=== PATIENT | female | born 1950 | race Caucasian/White ===

== ENCOUNTER 2019-02-22 06:49 | Observation (INO) | payer MEDICARE, BC ==
[2019-02-22] MEDS ORDERED: Potassium Replacement Protocol 1 EACH MISC MISCELLANE PRN (14:46)
[2019-02-22] MEDS ORDERED: NALOXONE 0.4 MG/ML 1 ML VIAL IV PRN (14:47)
[2019-02-22] MEDS ORDERED: IPRATROPIUM-ALBUTEROL 3 ML NEB INHALATION STA (14:58)
[2019-02-22] MEDS ORDERED: SODIUM CHLORIDE 0.9% 1,000 ML IV SCH (15:00)
[2019-02-22] MEDS: HYDROCHLOROTHIAZIDE 12.5 MG CAP PO SCH (15:22)
[2019-02-22] MEDS: PANTOPRAZOLE 40 MG TABLET PO SCH (15:22)
[2019-02-22 15:24] LABS: Basophils % (A) 1 %; Eosinophils # (A) 0.1 k/uL (0-0.7); Eosinophils % (A) 2 %; HGB 13.7 gm/dL (11.4-16.0); Lymphocytes # (A) 1.8 k/uL (1.0-4.8); Lymphocytes % (A) 34 %; MCH 31.3 pg (25.0-35.0); Mean Platelet Volume 7.3; Monocytes # (A) 0.3 k/uL (0-1.0); Monocytes % (A) 5 %; Neutrophils # (A) 3.1 k/uL (1.3-7.7); Neutrophils % (A) 57 %; Platelet Count 185 k/uL (150-450); RBC 4.39 m/uL (3.80-5.40); RDW 13.2 % (11.5-15.5); WBC 5.5 k/uL (3.8-10.6)
[2019-02-22 15:36] LABS: African American GFR (CKD) >90 (>60 ml/min/1.73 sqM); Anion Gap 5 mmol/L; Blood Urea Nitrogen 10 mg/dL (7-17); Calcium 9.5 mg/dL (8.4-10.2); Carbon Dioxide 31 mmol/L (22-30); Chloride 105 mmol/L (98-107); Glucose 128 mg/dL (74-99); Non-African American GFR(CKD) >90 (>60 ml/min/1.73 sqM); Potassium 4.2 mmol/L (3.5-5.1); Sodium 141 mmol/L (137-145)
--- NOTE | 2019-02-22 15:57 | US ---
EXAMINATION TYPE: US carotid duplex BILAT DATE OF EXAM: 02/22/2019 COMPARISON: NONE CLINICAL HISTORY: CVA. Pt states dizziness EXAM MEASUREMENTS: RIGHT: Peak Systolic Velocity (PSV) cm/sec ----- Right CCA: 54.9 ----- Right ICA: 88.7 ----- Right ECA: 55.7 ICA/CCA ratio: 1.6 RIGHT: End Diastole cm/sec ----- Right CCA: 20.0 ----- Right ICA: 37.0 ----- Right ECA: 6.0 LEFT: Peak Systolic Velocity (PSV) cm/sec ----- Left CCA: 62.7 ----- Left ICA: 98.4 ----- Left ECA: 54.9 ICA/CCA ratio: 1.6 LEFT: End Diastole cm/sec ----- Left CCA: 13.9 ----- Left ICA: 38.6 ----- Left ECA: 5.1 VERTEBRALS (direction of flow): Right Vertebral: Antegrade Left Vertebral: Antegrade Rhythm: Arrhythmia No significant stenosis seen IMPRESSION: 1. Mild plaquing and mild intimal thickening without significant flow-limiting stenosis. Criteria for Assigning % of Stenosis / Diameter reduction (Estimation based on the indirect measurements of the internal carotid artery velocities (ICA PSV). 1. Normal (no stenosis)=ICA PSV < 125 cm/s: ratio < 2.0: ICA EDV<40 cm/s. 2. Less than 50% stenosis=ICA PSV < 125 cm/s: ratio < 2.0: ICA EDV<40 cm/s. 3. 50 to 69% stenosis=ICA PSV of 125 to 230 cm/s: ration 2.0 ? 4.0: ICA EDV 40-100 cm/s. 4. Greater than 70% stenosis to near occlusion= ICA PSV > 230 cm/s: ratio > 4.0: ICA EDV > 100 cm/s. 5. Near occlusion= ICA PSV velocities may be low or undetectable: variable ratio and ICA EDV. 6. Total occlusion=unable to detect flow.
[2019-02-22] MEDS ORDERED: METOPROLOL SUCCINATE (ER) 25 MG TAB.ER.24H PO SCH (16:00)
--- NOTE | 2019-02-22 16:03 | ECHOF ---
Referral Reason:CVA MEASUREMENTS -------- HEIGHT: 165.1 cm WEIGHT: 79.4 kg BP: RVIDd: 2.7 cm (< 3.3) IVSd: 1.6 cm (0.6 - 1.1) LVIDd: 3.4 cm (3.9 - 5.3) LVPWd: 1.1 cm (0.6 - 1.1) IVSs: 1.9 cm LVIDs: 1.9 cm LVPWs: 1.9 cm LAESV Index (A-L): 18.77 ml/m IVSd: 0.9 cm (0.6 - 1.1) LVIDd: 4.3 cm (3.9 - 5.3) LVPWd: 1.1 cm (0.6 - 1.1) IVSs: 1.6 cm LVIDs: 2.3 cm LVPWs: 1.9 cm EDV(Teich): 85 ml ESV(Teich): 17 ml EF(Teich): 80 % %FS: 48 % SV(Teich): 68 ml Ao Diam: 3.0 cm (2.0 - 3.7) AV Cusp: 1.6 cm (1.5 - 2.6) LA Diam: 3.4 cm (2.7 - 3.8) MV EXCURSION: 10.759 mm (> 18.000) MV EF SLOPE: 54 mm/s (70 - 150) EPSS: 0.5 cm MV E Jose: 0.80 m/s MV DecT: 179 ms MV A Jose: 0.69 m/s MV E/A Ratio: 1.16 RAP: 5.00 mmHg RVSP: 41.36 mmHg FINDINGS -------- Sinus rhythm. This was a technically good study. The left ventricular size is normal. There is mild concentric left ventricular hypertrophy. Overa ll left ventricular systolic function is normal with, an EF between 55 - 60 %. The right ventricle is normal in size. The left atrial size is normal. Normal LA size by volume 22+/-6 ml/m2. The right atrial size is normal. Eustachian valve seen in the right atrium (normal finding). Interatrial and interventricular septum intact. The aortic valve is trileaflet and appears structurally normal. The mitral valve is normal. There is trace mitral regurgitation. The tricuspid valve appears structurally normal. Moderate tricuspid regurgitation present. There is mild pulmonary hypertension. The right ventricular systolic pressure, as measured by Doppler, is 41.36mmHg. There is no pulmonic regurgitation present. The aortic root size is normal. Normal inferior vena cava with normal inspiratory collapse consistent with estimated right atrial pre ssure of 5 mmHg. There is no pericardial effusion. CONCLUSIONS -------- 1. Sinus rhythm. 2. This was a technically good study. 3. The left ventricular size is normal. 4. There is mild concentric left ventricular hypertrophy. 5. Overall left ventricular systolic function is normal with, an EF between 55 - 60 %. 6. The right ventricle is normal in size. 7. The left atrial size is normal. 8. Normal LA size by volume 22+/-6 ml/m2. 9. The right atrial size is normal. 10. Eustachian valve seen in the right atrium (normal finding). 11. Interatrial and interventricular septum intact. 12. The aortic valve is trileaflet and appears structurally normal. 13. The mitral valve is normal. 14. There is trace mitral regurgitation. 15. The tricuspid valve appears structurally normal. 16. Moderate tricuspid regurgitation present. 17. There is mild pulmonary hypertension. 18. The right ventricular systolic pressure, as measured by Doppler, is 41.36mmHg. 19. There is no pulmonic regurgitation present. 20. The aortic root size is normal. 21. Normal inferior vena cava with normal inspiratory collapse consistent with estimated right atrial pressure of 5 mmHg. 22. There is no pericardial effusion. NETTING WEAVER: Alexsandra Haines RDCS
--- NOTE | 2019-02-22 16:58 | MR ---
EXAMINATION TYPE: MR brain wo/w con DATE OF EXAM: 02/22/2019 COMPARISON: None HISTORY: Rt sided weakness, TIA TECHNIQUE: Multiplanar, multisequence images of the brain and brainstem is performed without and with IV contras t, utilizing 7.5 mL intravenous Gadavist . FINDINGS: There is mild cerebral cortical atrophy. There is no mass effect nor midline shift. There is no sign of intracranial hemorrhage. On the T2 and FLAIR images there are numerous foci of increased signal in the periventricular white matter. These measure up to 10 mm and total number is approximately 30. Th ere is predominantly small lesions measuring up to 5 mm. There is some coalescent signal in the right posterior frontal lobe. Ventricles have normal size. There is no hydrocephalus. Brainstem is intact. Corpus callosum is intact. Sella turcica appears normal. The contrast images show no pathologic enhancement. There is normal contrast opacification of the chris ous sinuses. IMPRESSION: Periventricular white matter signal changes consistent with chronic small vessel ischemia or demyelinating disease. No evidence of cortical infarct. Mild atrophy.
[2019-02-22] MEDS ORDERED: ACETAMINOPHEN TAB 325 MG TAB PO PRN (18:05)
[2019-02-22] MEDS ORDERED: ONDANSETRON 4 MG/2 ML VIAL IVP PRN (18:05)
[2019-02-22] MEDS ORDERED: ALBUTEROL NEBULIZED 2.5 MG/3 ML INHALATION PRN (18:07)
[2019-02-22] MEDS ORDERED: POTASSIUM CHLORIDE ER 20 MEQ TAB.ER PO STA (18:09)
--- NOTE | 2019-02-22 18:38 | P.HPIM ---
History of Present Illness H&P Date: 02/22/19 Chief Complaint: dizziness Patient is a 69 yo CF with a past medical history of SVT, paroxysmal A. fib, HTN, and GERD who initially presented to [facility] with complaints of dizziness. There she underwent an extensive evaluation. Her vital signs were normal on admission. Laboratory analysis was normal other than a mildly low potassium at 3.3. She underwent a CT of the brain which showed chronic microvascular changes but no acute process. They were concerned for possible TIA versus CVA and she was subsequently transferred [facility] for neurology evaluation. Upon arrival here she underwent an echocardiogram which demonstrated an ejection fraction of 55-60%, mild LVH, moderate tricuspid regurg, and moderate pulmonary hypertension with RVSP of 41.36. She underwent carotid Dopplers which did not show any flow-limiting lesions. MRI was ordered. Patient seen and examined at bedside. She reports that last evening she had 3 significant coughing spells in rapid succession in the middle the night. She then started having some feelings of the room spinning when she opened her eyes. She sat at the edge of bed and these feelings resolved. She then got up to go to the bathroom and on her way back she again felt dizzy. She also noted that she was having an off-balance gait with some drifting to the right hand side. This took several minutes but also currently resolved on its own. Throughout the day she has had intermittent dizziness when changing positions and moving. It is always better with rest. These episodes are getting less frequent and severe with movement. She denies any focal neuro deficits such as one arm or leg is weaker non-, difficulty with speech, difficulty with swallowing, uneven face, or loss of vision. She denies any double vision but does state her vision felt out of focus on the initial event. She had a urinary tract infection about a month ago but has not had any other recent illness. She has chronic cough which is unchanged. She denies any fever, chills, nausea, vomiting, or diarrhea. She did not overtly feel as though she would pass out during these episodes but she does have a history of vasovagal syncope during coughing episodes. She did not have any associated chest pain with these episodes or palpitations. She does have a history of paroxysmal atrial fibrillation in the past. She is followed with Dr. Candelaria. Review of Systems Pertinent positives and negatives as discussed in HPI, a complete review of systems was performed and all other systems are negative. Past Medical History Past Medical History: COPD, Hyperlipidemia, Hypertension, Osteoarthritis (OA), Supraventricular Tachycardia (SVT) Additional Past Medical History / Comment(s): degenerative joint disease, one episode of paroxysmal A. fib, hiatal hernia, COPD stage II, mild obstructive sleep apnea, GERD, arthritis, secondary pulmonary hypertension History of Any Multi-Drug Resistant Organisms: None Reported Past Surgical History: Appendectomy, Tonsillectomy, Tubal Ligation Additional Past Surgical History / Comment(s): Heart cath Without stenting, nasal surgery Smoking Status: Former smoker - Past Family History Father Family Medical History: Congestive Heart Failure (CHF), Diabetes Mellitus Additional Family Medical History / Comment(s): Heart failure Mother Family Medical History: COPD, Diabetes Mellitus Medications and Allergies Home Medications Medication Instructions Recorded Confirmed Type Albuterol Inhaler [Ventolin Hfa 1 - 2 puff INHALATION RT-Q6H PRN 02/22/19 02/22/19 History Inhaler] Calcium Carb-Vit D 500Mg-200Un 1 each PO DAILY 02/22/19 02/22/19 History [Oscal 500+D] Ezetimibe/Simvastatin [Vytorin 1 tab PO DAILY 02/22/19 02/22/19 History 10-40 mg] Fluticasone/Salmeterol [Advair 1 inhalation PO BID 02/22/19 02/22/19 History 250-50 Diskus] Hydrochlorothiazide [Hydrodiuril] 12.5 mg PO DAILY 02/22/19 02/22/19 History Ipratropium-Albuterol Nebulize 3 ml INHALATION QID PRN 02/22/19 02/22/19 History [Duoneb 0.5 mg-3 mg/3 ml Soln] Metoprolol Succinate (ER) [Toprol 50 mg PO DAILY 02/22/19 02/22/19 History Xl] Metoprolol Succinate [Toprol XL] 25 mg PO DAILY@1600 02/22/19 02/22/19 History Pantoprazole Sodium [Protonix] 40 mg PO DAILY 02/22/19 02/22/19 History Sennosides/Docusate Sodium [Kerry 1 tab PO DAILY 02/22/19 02/22/19 History Colace] Sodium Chloride [Saline Nasal 1 spray EA NOSTRIL BID 02/22/19 02/22/19 History [place]] Allergies Allergy/AdvReac Type Severity Reaction Status Date / Time No Known Allergies Allergy Verified 02/22/19 13:05 Physical Exam Osteopathic Statement: *. No significant issues noted on an osteopathic structural exam other than those noted in the History and Physical/Consult. Vitals: Vital Signs Temp Pulse Pulse Resp BP Pulse Ox 02/22/19 15:45 88 02/22/19 15:38 86 02/22/19 15:20 98.6 F 85 18 122/76 95 Intake and Output 02/22/19 02/22/19 02/22/19 06:59 14:59 22:59 Other: Weight 79.4 kg General: non toxic, no distress, appears at stated age, normal weight Derm: no unusual rashes/lesions no unusual ecchymoses, warm, dry Head: atraumatic, normocephalic, symmetric Eyes: EOMI, no lid lag, anicteric sclera, pupils equal round reactive to light ENT: Nose and ears atraumatic, no thrush, no pharyngeal erythema Neck: No thyromegaly, no cervical lymphadenopathy, trachea midline, supple Mouth: no lip lesion, mucus membranes moist Cardiovascular: S1S2 reg, no murmur, positive posterior tibial pulse bilateral, no edema, capillary refill less than 2 seconds Lungs: CTA bilateral, no rhonchi, no rales , no accessory muscle use Abdominal: soft, nontender to palpation, no guarding, no appreciable organomegaly, normal bowel sounds Ext: no gross muscle atrophy, muscle strength 5 out of 5 in all 4 extremities grossly, no contractures, Neuro: Face symmetrical, pupils equal round reactive to light and accommodation, extraocular motion intact, no tongue deviation, no uvular deviation, shoulder rise equal bilaterally, light touch intact all 4 extremities, finger to nose within normal limits, no roving eye movements with [place], however got acutely dizzy when she sat back up and twisted her head Psych: Alert, oriented, appropriate affect Results CBC & Chem 7: 02/22/19 14:55 02/22/19 14:55 Labs: Abnormal Lab Results - Last 24 Hours (Table) 02/22/19 Range/Units 14:55 Carbon Dioxide 31 H (22-30) mmol/L Glucose 128 H (74-99) mg/dL CT Scan - head: report reviewed Thrombosis Risk Factor Assmnt - DVT/VTE Prophylaxis DVT/VTE Prophylaxis: Low risk, early ambulation encouraged - Choose All That Apply Each Risk Factor Represents 2 Points: Age 61-74 years Each Risk Factor Represents 5 Points: Stroke (< 1 month) Thrombosis Risk Factor Assessment Total Risk Factor Score: 7 Thrombosis Risk Factor Assessment Level: High Risk Assessment and Plan Assessment: Dizziness -Suspect secondary to BPPV, doubt posterior circulation stroke but will rule out with MRI -Echocardiogram and carotid Dopplers unrevealing -Continue with telemetry -Aspirin in the morning -Check lipid profile in a.m. -Low suspicion for acute cerebrovascular event therefore will maintain blood pressure medication -Patient appears to be walking without much difficulty on my examination -Orthostatic negative Hx of P. A fib episode X 1 - telemetry monitoring Chronic: Hypertension-resume home metoprolol, hydrochlorothiazide, follow blood pressures Dyslipidemia-continue with ezetimibe and statin GERD-resume PPI COPD without acute exacerbation-continue with as needed bronchodilators Pulmonary hypertension Hiatal hernia Osteoarthritis The patient is placed in observation with an anticipated less than 2 midnight stay for evaluation of DIzzness with concern for possible CVA/TIA Surrogate decision-maker: CODE STATUS:Full DVT prophylaxis: ambulation Discussed with: Patient, family, nursing, Dr. Carey Anticipated discharge date: in AM Anticipated discharge place: home A total of 65 minutes was spent on the care of this complex patient more than 50% of the time was spent in counseling and care coordination. [email or web address]
[2019-02-22] MEDS: IPRATROPIUM-ALBUTEROL 3 ML NEB INHALATION SCH (20:11)
[2019-02-22] MEDS: SYMBICORT 80-4.5 MCG INHALER INHALATION SCH (20:25)
[2019-02-23] MEDS: PANTOPRAZOLE 40 MG TABLET PO SCH (06:43)
[2019-02-23] MEDS: SYMBICORT 80-4.5 MCG INHALER INHALATION SCH (08:10)
[2019-02-23] MEDS: IPRATROPIUM-ALBUTEROL 3 ML NEB INHALATION SCH (08:10)
--- NOTE | 2019-02-23 08:51 | P.DS ---
Providers Date of admission: 02/22/19 12:54 Expected date of discharge: 02/23/19 Attending physician: Anitha Edmonds DO Consults: 02/22/19 14:45 Consult Physician Stat Consulting Provider: Mitra Sanders Reason/Comments: TIA/ right side weakness Do you want consulting provider notified?: Yes Primary care physician: Wilson Carey Hospital Course: Discharge Diagnosis: BPPV Hx of P. Afib- none on telemetry Hypertension Dyslipidemia GERD COPD without acute exacerbation Pulmonary hypertension Hiatal hernia Osteoarthritis Hospital Course: Patient is a 69 yo CF with a past medical history of SVT, paroxysmal A. fib, HTN, and GERD who initially presented to [facility] with complaints of dizziness. There she underwent an extensive evaluation. Her vital signs were normal on admission. Laboratory analysis was normal other than a mildly low potassium at 3.3. She underwent a CT of the brain which showed chronic microvascular changes but no acute process. They were concerned for possible TIA versus CVA and she was subsequently transferred [facility] for neurology evaluation. Upon arrival here she underwent an echocardiogram which demonstrated an ejection fraction of 55-60%, mild LVH, moderate tricuspid regurg, and moderate pulmonary hypertension with RVSP of 41.36. She underwent carotid Dopplers which did not show any flow-limiting lesions. MRI was consistent with small vessel ischemic changes. Orthostatics were negative. She was monitored on tele overnight with no noted episodes of A fib. She was determined to have BPPV. She was determined stable for discharge. She will follow-up with Dr. Carey and then ENT if no improvement in symptoms. I have asked her not to drive until dizziness resolves or use sharp objects. Patient seen and examined at bedside. No chest pain, SOB, nausea, still having dizziness when moving. Vital signs reviewed and stable. General: non toxic, no distress, appears at stated age Derm: warm, dry Head: atraumatic, normocephalic, symmetric Eyes: EOMI, no lid lag, anicteric sclera Mouth: no lip lesion, mucus membranes moist Cardiovascular: S1S2 reg, no murmur, positive posterior tibial pulse bilateral, Lungs: CTA bilateral, no rhonchi, no rales , no accessory muscle use Abdominal: soft, nontender to palpation, no guarding, no appreciable organomegaly Ext: no gross muscle atrophy, no edema, no contractures Neuro: CN II-XI grossly intact, no focal neuro deficits Psych: Alert, oriented, appropriate affect A total of 25 minutes of time were spent preparing this complex discharge summary . Patient Condition at Discharge: Stable Plan - Discharge Summary New Discharge Prescriptions: Continue Fluticasone/Salmeterol [Advair 250-50 Diskus] 1 inhalation PO BID Ezetimibe/Simvastatin [Vytorin 10-40 mg] 1 tab PO DAILY Albuterol Inhaler [Ventolin Hfa Inhaler] 1 - 2 puff INHALATION RT-Q6H PRN PRN Reason: Allergy Symptoms Ipratropium-Albuterol Nebulize [Duoneb 0.5 mg-3 mg/3 ml Soln] 3 ml INHALATION QID PRN PRN Reason: Shortness Of Breath Calcium Carb-Vit D 500Mg-200Un [Oscal 500+D] 1 each PO DAILY Sennosides/Docusate Sodium [Kerry Colace] 1 tab PO DAILY Pantoprazole Sodium [Protonix] 40 mg PO DAILY Hydrochlorothiazide [Hydrodiuril] 12.5 mg PO DAILY Metoprolol Succinate [Toprol XL] 25 mg PO DAILY@1600 Metoprolol Succinate (ER) [Toprol XL] 50 mg PO DAILY Sodium Chloride [Saline Nasal [place]] 1 spray EA NOSTRIL BID Discharge Medication List Albuterol Inhaler [Ventolin Hfa Inhaler] 1 - 2 puff INHALATION RT-Q6H PRN 02/22/19 [History] Calcium Carb-Vit D 500Mg-200Un [Oscal 500+D] 1 each PO DAILY 02/22/19 [History] Ezetimibe/Simvastatin [Vytorin 10-40 mg] 1 tab PO DAILY 02/22/19 [History] Fluticasone/Salmeterol [Advair 250-50 Diskus] 1 inhalation PO BID 02/22/19 [History] Hydrochlorothiazide [Hydrodiuril] 12.5 mg PO DAILY 02/22/19 [History] Ipratropium-Albuterol Nebulize [Duoneb 0.5 mg-3 mg/3 ml Soln] 3 ml INHALATION QID PRN 02/22/19 [History] Metoprolol Succinate (ER) [Toprol XL] 50 mg PO DAILY 02/22/19 [History] Metoprolol Succinate [Toprol XL] 25 mg PO DAILY@1600 02/22/19 [History] Pantoprazole Sodium [Protonix] 40 mg PO DAILY 02/22/19 [History] Sennosides/Docusate Sodium [Kerry Colace] 1 tab PO DAILY 02/22/19 [History] Sodium Chloride [Saline Nasal [place]] 1 spray EA NOSTRIL BID 02/22/19 [History] Follow up Appointment(s)/Referral(s): Wilson Carey MD [Primary Care Provider] - 1-2 Days Patient Instructions/Handouts: Benign Paroxysmal Positional Vertigo (GEN) Activity/Diet/Wound Care/Special Instructions: Activity: As Tolerated Diet: Heart Healthy Special Instructions: No driving until dizziness resolves
[2019-02-23] MEDS ORDERED: METOPROLOL SUCCINATE (ER) 50 MG TAB.ER.24H PO SCH (09:00)
[2019-02-23] MEDS ORDERED: CALCIUM CARB-VIT D 500MG-200UN 1 EACH TAB PO SCH (09:00)
[2019-02-23] MEDS ORDERED: EZETIMIBE 10 MG TAB PO SCH (09:00)
[2019-02-23] MEDS ORDERED: ASPIRIN 81 MG PO SCH (09:00)
[2019-02-23] MEDS ORDERED: ATORVASTATIN 20 MG TAB PO SCH (09:00)
[2019-02-23] MEDS ORDERED: SENNOSIDES-DOCUSATE SODIUM 1 EACH TAB PO SCH (09:00)
[2019-02-23 09:44] VITALS: BP 105/68; PULSE 86; RESP 18; TEMP 98.3
[2019-02-23] MEDS: HYDROCHLOROTHIAZIDE 12.5 MG CAP PO SCH (09:45)
--- NOTE | 2019-02-23 19:22 | P.CNNES ---
History of Present Illness Consult date: 02/23/19 Reason for Consult: TIA Chief complaint: Dizziness History of Present Illness: HISTORY OF PRESENT ILLNESS: Thank you for allowing me to evaluate Ms. Mami Stone. Ms. Stone is a 69-year-old woman with past medical history of COPD, HLD, HTN, paroxysmal atrial fibrillation, osteoarthritis, GERD, secondary pulmonary HTN, who presented to [facility] with complaints of dizziness, transferred to [facility] for neurological evaluation. Patient reported having had significant coughing spells in the middle of the night before presentation. She then started having some feelings of room spinning when she opened her eyes. Patient also noticed that she was quite unbalanced while walking, leaning over to her R side. Patient denies any similar episode previously. Her symptoms have resolved. Denies any headache, nausea, vomiting, weakness, numbness or tingling. PAST MEDICAL HISTORY: COPD, HLD, HTN, paroxysmal atrial fibrillation, osteoarthritis, GERD, secondary pulmonary HTN PAST SURGICAL HISTORY: Appendectomy, tonsillectomy, tubal ligation, heart catheterization HOME MEDICATIONS: Calcium/vitamin D, Ezetimibe/Simvastatin, Advair, HCTZ, Duoneb, metoprolol, pantoprazole ALLERGIES: NKDA SOCIAL HISTORY: Former smoker FAMILY HISTORY: Father with heart failure, diabetes. Mother with COPD, diabetes REVIEW OF SYSTEMS: The 14 systems are reviewed and no additional points are identified compared to the review of systems documented history and physical PHYSICAL EXAMINATION: VITAL SIGNS: T 98.1 HR 79 RR 16 BP 132/76 O2 sat 99% on RA GEN.: NAD, pleasant and cooperative HEENT: NCAT, sclera without icterus NECK: Supple, no carotid bruit SKIN AND EXTREMITIES: Warm to touch, no edema NEURO: MENTAL STATUS: Patient alert and oriented to self, place, time. Able to name the current president. Speech fluent, able to name and repeat, following all commands readily. No right and left disorientation, neglect. CRANIAL NERVES II THROUGH XII: II: [Pupils are equal and reactive to light symmetrically. No afferent pupillary defect. Visual william are intact. III, IV, : No ptosis. Extraocular movements full. No nystagmus. V: Facial sensation intact from V1-3. VII. No clear facial asymmetry. VIII: Hearing intact to finger rub bilaterally. IX, X: Symmetric palate elevation. XI: Shoulder shrug intact. XII: Tongue midline without fasciculation or atrophy. MOTOR: Normal bulk/tone. No pronator drift or tremor. Strength is 5/5 throughout all 4 extremities. SENSORY: Intact to light touch in all 4 extremities. Romberg is negative. REFLEXES: 2+ throughout. Toes are downgoing. COORDINATION: Finger to nose intact. No dysmetria. GAIT: Narrow-based and stable. Able to toe/heel/tandem walk HINTS: negative DIAGNOSTIC TESTING: LABORATORY: WBC 5.5 hemoglobin 13.7 platelet 185 sodium 141 potassium 4.2 chloride 105 bicarb 31 BUN 10 creatinine 0.67 glucose 128 IMAGING: MRI brain without contrast 02/22/2019: Periventricular white matter signal changes consistent with chronic small vessel ischemia. No evidence of cortical infarct. Mild atrophy Carotid Doppler bilateral 02/22/2019: Mild plaquing and mild intimal thickening without significant flow limiting stenosis ASSESSMENT/RECOMMENDATIONS: 69-year-old woman with past medical history of COPD, HLD, HTN, paroxysmal atrial fibrillation, osteoarthritis, GERD, secondary pulmonary HTN, who presented to [facility] with complaints of dizziness, transferred to [facility] for neurological evaluation. Symptoms have resolved. No focal neuro deficits. Patient most likely had a peripheral vertigo as a result of harsh coughing and displacement of otoliths that self-resolved. Patient with hx of a.fib, HTN, HLD, yet patient is not even on any antiplatelet. CHADsVASc score 3, which menas patient should most likely be started on anticoagulation. I unfortuantely did not get to discuss with patient about stroke prevention management with antiplatelet/anticoagulation. I will call patient tomorrow to discuss. Past Medical History Past Medical History: COPD, Hyperlipidemia, Hypertension, Osteoarthritis (OA), Supraventricular Tachycardia (SVT) Additional Past Medical History / Comment(s): degenerative joint disease, one episode of paroxysmal A. fib, hiatal hernia, COPD stage II, mild obstructive sleep apnea, GERD, arthritis, secondary pulmonary hypertension History of Any Multi-Drug Resistant Organisms: None Reported Past Surgical History: Appendectomy, Tonsillectomy, Tubal Ligation Additional Past Surgical History / Comment(s): Heart cath Without stenting, nasal surgery Smoking Status: Former smoker - Past Family History Father Family Medical History: Congestive Heart Failure (CHF), Diabetes Mellitus Additional Family Medical History / Comment(s): Heart failure Mother Family Medical History: COPD, Diabetes Mellitus Medications and Allergies Home Medications Medication Instructions Recorded Confirmed Type Albuterol Inhaler [Ventolin Hfa 1 - 2 puff INHALATION RT-Q6H PRN 02/22/19 02/22/19 History Inhaler] Calcium Carb-Vit D 500Mg-200Un 1 each PO DAILY 02/22/19 02/22/19 History [Oscal 500+D] Ezetimibe/Simvastatin [Vytorin 1 tab PO DAILY 02/22/19 02/22/19 History 10-40 mg] Fluticasone/Salmeterol [Advair 1 inhalation PO BID 02/22/19 02/22/19 History 250-50 Diskus] Hydrochlorothiazide [Hydrodiuril] 12.5 mg PO DAILY 02/22/19 02/22/19 History Ipratropium-Albuterol Nebulize 3 ml INHALATION QID PRN 02/22/19 02/22/19 History [Duoneb 0.5 mg-3 mg/3 ml Soln] Metoprolol Succinate (ER) [Toprol 50 mg PO DAILY 02/22/19 02/22/19 History XL] Metoprolol Succinate [Toprol XL] 25 mg PO DAILY@1600 02/22/19 02/22/19 History Pantoprazole Sodium [Protonix] 40 mg PO DAILY 02/22/19 02/22/19 History Sennosides/Docusate Sodium [Kerry 1 tab PO DAILY 02/22/19 02/22/19 History Colace] Sodium Chloride [Saline Nasal 1 spray EA NOSTRIL BID 02/22/19 02/22/19 History Spring] Allergies Allergy/AdvReac Type Severity Reaction Status Date / Time No Known Allergies Allergy Verified 02/22/19 13:05 Physical Examination - Vital Signs Vital Signs: Vital Signs Temp Pulse Pulse Resp BP BP BP 02/23/19 04:00 98.1 F 79 16 132/76 136/90 112/69 02/23/19 00:00 78 17 02/22/19 20:25 86 02/22/19 20:13 84 02/22/19 20:00 98.2 F 67 17 110/57 02/22/19 18:50 123/78 151/81 139/87 02/22/19 15:45 88 02/22/19 15:38 86 02/22/19 15:20 98.6 F 85 18 BP Pulse Ox 02/23/19 04:00 99 02/23/19 00:00 02/22/19 20:25 02/22/19 20:13 02/22/19 20:00 98 02/22/19 18:50 02/22/19 15:45 02/22/19 15:38 02/22/19 15:20 122/76 95 Intake and Output 02/22/19 02/22/19 02/23/19 14:59 22:59 06:59 Intake Total 1192 500 Balance 1192 500 Intake: IV 10 20 Invasive Line 1 10 20 Oral 1182 480 Other: Voiding Method Toilet Toilet # Voids 2 2 Weight 79.4 kg 79.6 kg Results - Laboratory Findings CBC and BMP: 02/22/19 14:55 02/22/19 14:55 Abnormal Lab Findings: Abnormal Labs 02/22/19 14:55 Carbon Dioxide 31 H Glucose 128 H
== END 2019-02-23 10:33 | disposition home or self-care (01) ==
LOC: 3SCARD 12:54
PROVIDERS: ADMIT Internal Medicine; ATTEND Internal Medicine
DX: H81.10 Benign paroxysmal vertigo, unspecified ear (principal); E78.5 Hyperlipidemia, unspecified; H54.7 Unspecified visual loss; I07.1 Rheumatic tricuspid insufficiency; I10 Essential (primary) hypertension; I27.29 Other secondary pulmonary hypertension; I48.0 Paroxysmal atrial fibrillation; J44.9 Chronic obstructive pulmonary disease, unspecified; K21.9 Gastro-esophageal reflux disease without esophagitis; K44.9 Diaphragmatic hernia without obstruction or gangrene; M19.90 Unspecified osteoarthritis, unspecified site; Z79.899 Other long term (current) drug therapy; Z82.49 Family history of ischemic heart disease and other diseases of the circulatory system; Z82.5 Family history of asthma and other chronic lower respiratory diseases; Z83.3 Family history of diabetes mellitus; Z87.440 Personal history of urinary (tract) infections; Z87.891 Personal history of nicotine dependence; Z98.51 Tubal ligation status
CPT/HCPCS: 94640 ×4; 93306; 80048; 83735; 85025; 93880; 70553; G0378 ×2; G0379; A9585

== ENCOUNTER → 2019-08-22 | Outpatient (CLI) | payer MEDICARE, BC | END | disposition home or self-care (01) | LOC: LABWHC1 11:09 | PROVIDERS: ATTEND Internal Medicine Interventional Cardiology | DX: U07.1 COVID-19 (principal) | CPT/HCPCS: 87635 ==

== ENCOUNTER 2019-08-24 07:49 | Day surgery (SDC) | payer MEDICARE, BC ==
[2019-08-23 09:00] VITALS: BMI 29.4
[~2019-08-24 07:49] MED LIST: ALPRAZolam 0.25 MG TAB PO PRN; ALPRAZolam 0.5 MG TAB PO PRN; ASPIRIN 325 MG TAB PO ONE; ATORVASTATIN 80 MG TAB PO ONE; HYDROmorphone 0.5 MG/0.5 ML SYRINGE IVP STA; NITROGLYCERIN SL TABS 0.4 MG TAB SUBLINGUAL PRN; SODIUM CHLORIDE 0.9% 1,000 ML in EMPTY BAG 1 BAG IV ONE; hydrALAZINE HCL 20 MG/ML 1 ML VIAL IVP ONE
[2019-08-24 08:19] VITALS: TEMP 98.4
[2019-08-24 08:26] LABS: Basophils # (A) 0.1 k/uL (0-0.2); Basophils % (A) 1 %; Eosinophils # (A) 0.1 k/uL (0-0.7); Eosinophils % (A) 2 %; HCT 43.8 % (34.0-46.0); HGB 13.9 gm/dL (11.4-16.0); Lymphocytes # (A) 1.8 k/uL (1.0-4.8); Lymphocytes % (A) 26 %; MCH 30.8 pg (25.0-35.0); MCHC 31.7 g/dL (31.0-37.0); MCV 97.3 fL (80.0-100.0); Mean Platelet Volume 8.7; Monocytes # (A) 0.6 k/uL (0-1.0); Monocytes % (A) 8 %; Neutrophils # (A) 4.3 k/uL (1.3-7.7); Neutrophils % (A) 62 %; Platelet Count 207 k/uL (150-450); RBC 4.51 m/uL (3.80-5.40); RDW 13.3 % (11.5-15.5)
[2019-08-24 08:39] LABS: African American GFR (CKD) >90 (>60 ml/min/1.73 sqM); Anion Gap 3 mmol/L; Blood Urea Nitrogen 13 mg/dL (7-17); Calcium 9.6 mg/dL (8.4-10.2); Carbon Dioxide 35 mmol/L (22-30); Chloride 99 mmol/L (98-107); Glucose 94 mg/dL (74-99); Non-African American GFR(CKD) >90 (>60 ml/min/1.73 sqM); Potassium 3.7 mmol/L (3.5-5.1); Sodium 137 mmol/L (137-145)
[2019-08-24] MEDS ORDERED: LIDOCAINE 1% INJ 10MG/ML (20 ML MDV) ONE (09:23)
[2019-08-24] MEDS ORDERED: MIDAZOLAM 2 MG/2 ML VIAL IV ONE ×2 (09:41→10:00)
[2019-08-24] MEDS ORDERED: LIDOCAINE 1% INJ 10MG/ML (20 ML MDV) SQ ONE (10:00)
[2019-08-24] MEDS ORDERED: HYDROmorphone 1 MG/ML 1 ML SYRINGE ONE (10:21)
[2019-08-24] MEDS ORDERED: IOPAMIDOL-370 125ML BTL INJ ONE (10:23)
[2019-08-24] MEDS ORDERED: HYDROmorphone 1 MG/ML 1 ML SYRINGE IVP ONE (10:23)
[2019-08-24] MEDS ORDERED: RX INFO: IV CONTRAST WAS GIVEN 1 EACH MISC MISCELLANE PRN (10:40)
[2019-08-24] MEDS ORDERED: SODIUM CHLORIDE 0.9% 1,000 ML IV SCH (10:45)
[2019-08-24 11:37] VITALS: RESP 16
--- NOTE | 2019-08-24 12:10 | CC ---
CARDIAC CATHETERIZATION REPORT DATE OF SERVICE: 08/24/2019 PERFORMING PHYSICIAN: Eduard Candelaria MD. PROCEDURE PERFORMED: 1. Right heart catheterization. 2. Left heart catheterization. 3. Selective right and left coronary angiogram. INDICATION: This is a 69-year-old female patient with chronic obstructive pulmonary disease, who was diagnosed recently with cardiomyopathy after increasing in the shortness of breath. Because of that, a heart catheterization was advised. APPROACH: Right common femoral vein and right common femoral artery. COMPLICATION: None. LEVEL OF SEDATION: Moderate with sedation length of 24 minutes. PROCEDURE DESCRIPTION: After obtaining an informed consent, the patient was brought to the cardiac clinical laboratory aide. The right common femoral vein and right common femoral artery were cannulated using micropuncture technique, the micropuncture wire passed easily, then I placed a 6-Tongan sheath at the right common femoral artery and an 8-Tongan sheath at the right common femoral vein. After that I did right heart catheterization using a 6-Tongan swan catheter. I could not get the Kingsbury catheter to the pulmonary artery. I used the RV pressure as a surrogate for the PA pressure. And I used the LVEDP as a surrogate for the pulmonary capillary wedge pressure. After that, left heart catheterization was performed using the JR4 catheter. Selective right and left coronary angiogram performed using JR4 and JL4 catheters. HEMODYNAMICS: 1. The pulmonary capillary wedge pressure was 10 mmHg. 2. The PA pressures with systolic at 38 mmHg. 3. RV pressures were as follows: Systolic 38 and end-diastolic of 15 mmHg. 4. RA pressure was 8 mmHg. 5. LVEDP was 10 mmHg. SELECTIVE CORONARY ANGIOGRAM: 1. The right coronary artery is a large caliber vessel, it is a dominant vessel, appeared to have mild disease only in the midportion and distally bifurcates into PDA and PLV branches, both appeared to be angiographically normal. 2. The left main is angiographically normal, it bifurcates into LCX and LAD. 3. The LCX is a large caliber vessel, it is a nondominant vessel and appeared to be angiographically normal. In the midportion gives rise into an OM branch which seems to be normal. 4. The LAD, the proximal LAD is normal and gives rise into a large diagonal branch which seems to be normal and the mid and distal LAD appeared to be angiographically normal. CONCLUSION: 1. Mild pulmonary hypertension. 2. Mild nonobstructive coronary artery disease. 3. Normal LVEDP. 4. No evidence of aortic stenosis. POSTPROCEDURE MANAGEMENT: 1. Medical treatment. 2. Follow up with the patient. JAUN / RENA: [id number] /
[2019-08-24 15:37] VITALS: BP 118/55; PULSE 66
== END 2019-08-24 16:04 | disposition home or self-care (01) ==
LOC: CATHCVL 07:49
PROVIDERS: ATTEND Internal Medicine Interventional Cardiology
DX: I42.9 Cardiomyopathy, unspecified (principal); I27.20 Pulmonary hypertension, unspecified; I47.1 Supraventricular tachycardia; I49.1 Atrial premature depolarization; I10 Essential (primary) hypertension; J44.9 Chronic obstructive pulmonary disease, unspecified; G47.30 Sleep apnea, unspecified; E78.5 Hyperlipidemia, unspecified; Z82.49 Family history of ischemic heart disease and other diseases of the circulatory system; Z72.0 Tobacco use; Z79.51 Long term (current) use of inhaled steroids; Z79.899 Other long term (current) drug therapy
CPT/HCPCS: 93460; 80048; 85025; C1751; C1894 ×2; C1769 ×2; C1760; J2250; J2001; J1170; Q9967

== ENCOUNTER → 2024-07-19 | Outpatient (CLI) | payer MEDICARE, BC ==
--- NOTE | 2024-07-19 12:56 | XR ---
EXAMINATION TYPE: XR knee complete LT DATE OF EXAM: 07/19/2024 12:18 PM COMPARISON: None. CLINICAL INDICATION: Female, 74 years old with history of M25.562 PAIN IN LEFT KNEE, pain TECHNIQUE: 3 view(s) obtained. FINDINGS: No acute fracture or dislocation evident. Joint spaces are preserved. No joint effusion is evident. Follow up exams can be performed 7-10 days from acute trauma for continued pain IMPRESSION: 1. No suspicious acute changes left knee [facility], Workstation: [facility], 07/19/2024 12:54 PM
== END | disposition home or self-care (01) ==
LOC: RADXRMAIN 12:07
PROVIDERS: ATTEND Family Medicine
DX: M25.562 Pain in left knee (principal)

== ENCOUNTER → 2024-07-25 | Outpatient (CLI) | payer MEDICARE, BC ==
--- NOTE | 2024-07-26 09:42 | MR ---
EXAMINATION TYPE: MR knee LT wo con DATE OF EXAM: 07/25/2024 6:56 PM COMPARISON: 07/18/2024. CLINICAL INDICATION: Female, 74 years old with history of M25.562 PAIN IN LEFT KNEE; PHH, Left knee p ain posterior/lateral distal knee x4 weeks, Started after a bad cramp in her left ankle, Pain shoots up to left hip and down into left ankle when bears weight TECHNIQUE: Multi planar, multi sequence imaging was performed of the knee including: Triplane proton density fat-saturated images and T1-weighted imaging. No Gadolinium was given. IV Contrast: mL (none if empty) FINDINGS: Medial meniscus: Meniscal body vertical tear series 701 image 17. Increased signal throughout the pos terior horn which does not extending to the surface of the meniscus. Medial femorotibial cartilage: Cartilage thinning without full-thickness defect. Medial collateral ligament: Intact Lateral meniscus: Free edge fraying with superior surface meniscal body tear series 501 image 19 Lateral femorotibial cartilage: Cartilage thinning worse on the lateral femur with near full-thic kness loss. Lateral collateral ligament complex: Intact Patellofemoral alignment: Normal Patellofemoral cartilage: Cartilage thinning without full-thickness defect. Extensor mechanism: Intact. Joint/bursal fluid: None. Muscles/tendons: The patellar tendon, quadriceps tendon, IT band, pes anserinus tendons, semimembrano maya tendon, popliteus tendon, and biceps femoris tendon are all within normal limits. Bone marrow: Normal. Anterior cruciate ligament: Intact. Posterior cruciate ligament: Intact. Soft tissues: Scattered mild subcutaneous edema throughout the tissues surrounding the knee. IMPRESSION: 1. No definitive evidence to suggest ligamentous injury. 2. Lateral meniscal body free edge fraying with its superior surface tear. 3. Medial meniscal body free edge fraying with vertical tear. 4. ACL, PCL, LCL and MCL are intact. 5. Articular cartilage loss of the lateral femoral condyle. [facility], , 07/26/2024 9:39 AM
== END | disposition home or self-care (01) ==
LOC: RADMRIMAIN 18:11
PROVIDERS: ATTEND Family Medicine
DX: M23.322 Other meniscus derangements, posterior horn of medial meniscus, left knee (principal); M24.19 Other articular cartilage disorders, other specified site